=== PATIENT | male | born 1960 | race Caucasian/White ===

== ENCOUNTER → 2020-10-27 | Day surgery (SDC) | payer OTHER ==
[~2020-10-27] VITALS: Ht 134.6 cm; Wt 120.0 kg
[~2020-10-27] MED LIST: ARIP10TA9 PO; CETI10TA74 PO; IV RINGERS,LACTATED 1000ML 1,000 ML IV SCH; LACT10PA3 PO; LIDOCAINE 2% PF 5 ML VIAL. ONE; MIRT45TA53 PO; PROPOFOL 10 MG/ML (20ML) VIAL. IV ONE
[2020-10-27 06:26] VITALS: BP 124/74
[2020-10-27 08:05] VITALS: BP 140/70
--- NOTE | 2020-10-27 10:05 | CONS ---
DATE OF CONSULTATION: 10/27/2020 GASTROINTESTINAL CONSULTATION REASON FOR REFERRAL: Constipation and rectal bleeding. HISTORY OF PRESENT ILLNESS: A 60-year-old male whose past medical history is significant for constipation and depression was seen for colonoscopy. He has had increased constipation over the years. Family history is unknown for colon polyps or colon cancer. Weight and appetite have been stable and frequent bleeding, which has been bright red, has been noted but otherwise without additional complaints. PAST MEDICAL HISTORY: Depression. ALLERGIES: PENICILLIN. MEDICATIONS: Include Abilify, Zyrtec, lactulose and . SOCIAL HISTORY: Former drinker and smoker. FAMILY HISTORY: Unknown. PAST SURGICAL HISTORY: Lacerations on his forehead and a cyst removal along the left knee. REVIEW OF SYSTEMS: HEENT: There is no decreased hearing or visual acuity issues. CARDIAC: No history of hypertension, palpitation, or syncope. PULMONARY: No shortness of breath, productive cough, or asthma. RENAL: No dysuria, frequency, hematuria. MUSCULOSKELETAL: No osteoarthrosis, arthralgias, myalgias. GASTROINTESTINAL: See history of present illness. HEMATOLOGIC: No bleeding, bruising or coagulopathy. DERMATOLOGIC: No skin rashes or pruritus. PHYSICAL EXAMINATION: GENERAL: Reveals a well-nourished, well-developed male who is alert, cooperative, in no acute distress. VITAL SIGNS: Temperature 97.4, pulse 80, respirations 20. LUNGS: Clear. CARDIOVASCULAR: Reveals S1 and S2, without S3, S4 or appreciable murmur. ABDOMEN: Soft abdomen, normal bowel sounds without appreciable hepatosplenomegaly. IMPRESSION AND PLAN: Constipation with infrequent bleeding. Differential includes diverticulosis, colon polyps, colon cancer, irritable bowel syndrome, colonic inertia. Risks and benefits of procedure including risk of hemorrhage and perforation were discussed. The patient is willing to proceed at this time with colonoscopy. MILDRED/LANCE DR: Cata TID: [id number] CC: Usman
== END | disposition home or self-care (01) ==
LOC: ENDOS 06:07 → EEVIPCON 07:00
PROVIDERS: ATTEND Internal Medicine Gastroenterology
DX: K59.00 Constipation, unspecified (principal); K64.0 First degree hemorrhoids; K62.5 Hemorrhage of anus and rectum; K57.30 Diverticulosis of large intestine without perforation or abscess without bleeding; K63.89 Other specified diseases of intestine; K58.9 Irritable bowel syndrome, unspecified; K21.9 Gastro-esophageal reflux disease without esophagitis; F41.9 Anxiety disorder, unspecified; F32.9 Major depressive disorder, single episode, unspecified; Z87.891 Personal history of nicotine dependence; Z79.899 Other long term (current) drug therapy; Z98.890 Other specified postprocedural states
CPT/HCPCS: 45378; J2704